=== PATIENT | female | born 1960 | race Caucasian/White ===

== ENCOUNTER → 2017-10-10 | Outpatient (CLI) | payer BC ==
--- NOTE | 2017-10-10 13:54 | DIAGNOSTIC IMAGING REPORT ---
MRI OF THE LUMBAR SPINE WITHOUT IV CONTRAST CLINICAL HISTORY: Lumbar disc disorder. Chronic low back pain. Lower extremity tingling and numbness. COMPARISON STUDY: MRI of the lumbar spine dated 07/25/2015. TECHNIQUE: MRI of the lumbar spine is performed utilizing various T1 and T2-weighted sequences in the axial and sagittal planes. IV contrast was not administered for this examination. FINDINGS: Lumbar spine: Marrow signal intensity is slightly heterogeneous. Vertebral body height and alignment are maintained throughout the lumbar spine. The transverse and spinous processes appear intact. There is no evidence of spondylolysis. A tiny hemangioma is seen in the body of L2. Intervertebral discs: There is mild degenerative disc desiccation. No significant loss of height is seen. Spinal cord: The visualized spinal cord is normal in morphology and signal intensity. The conus medullaris terminates at the L1-L2 interspace. L1-L2: There is a small posterior disc bulge with annular fissure. There is no significant acquired compromise of the central canal. The neural foramina are patent. L2-L3: Unremarkable. L3-L4: Unremarkable. L4-L5: There is minimal disc bulge. The central canal and neural foramina are patent. Mild facet arthropathy is of no consequence. L5-S1: Unremarkable Sacrum: Th.e visualized sacrum is normal in morphology and signal intensity. Soft tissues: The paraspinous soft tissues are normal as imaged. The visualized retroperitoneal structures are grossly unremarkable, but incompletely assessed. IMPRESSION: 1. There is no disc herniation, central canal stenosis, or significant neural foraminal narrowing identified throughout the lumbar spine. 2. There is a posterior disc bulge at L1-L2 with annular fissure. This is similar in appearance to the 2016 examination. 3. No destructive bony process is identified. Dictated: 10/10/2017 1:41 PM Transcribed: 10/10/2017 1:53 PM [email or web address] Electronically signed by: Kj Dye M.D. 10/10/2017 2:07 PM Dictated Date/Time: 10/10/2017 1:41 PM
== END | disposition home or self-care (01) ==
LOC: C.MRI 11:58
PROVIDERS: ATTEND Family Medicine
DX: M51.9 Unspecified thoracic, thoracolumbar and lumbosacral intervertebral disc disorder (principal)